=== PATIENT | male | born 1975 | race Hispanic/Latino ===

== ENCOUNTER 2019-12-10 05:59 | Emergency (ER) | payer BC, OTHER | END 2019-12-10 06:55 | disposition home or self-care (01) | LOC: EDH 05:59 | DX: J10.1 Influenza due to other identified influenza virus with other respiratory manifestations (principal); E11.9 Type 2 diabetes mellitus without complications | CPT/HCPCS: 99281 ==

== ENCOUNTER 2020-02-23 07:51 | Emergency (ER) | payer SELFPAY | END 2020-02-23 09:03 | disposition home or self-care (01) | LOC: EDH 07:51 | DX: F41.1 Generalized anxiety disorder (principal); R06.00 Dyspnea, unspecified; E11.9 Type 2 diabetes mellitus without complications | CPT/HCPCS: 71045; 93005 ==

== ENCOUNTER 2021-06-18 17:32 | Emergency (ER) | payer BC, OTHER ==
[~2021-06-18] VITALS: Ht 165.1 cm; Wt 89.4 kg
[2021-06-18 17:33] VITALS: BP 147/94
[2021-06-18 18:17] LABS: BASOPHILS % (AUTO) 0.5 % (0.0-5.0); EOSINOPHILS % (AUTO) 2.2 % (0.0-8.0); HEMATOCRIT 45.5 % (42-54); LYMPHOCYTES % (AUTO) 21.3 % (21.0-51.0); MEAN CORPUSCULAR HEMOGLOBIN 28.8 pg (27.0-33.0); MEAN CORPUSCULAR HGB CONC 34.9 g/dL (32.0-36.0); MEAN CORPUSCULAR VOLUME 82.3 fL (79-99); MONOCYTES % (AUTO) 6.7 % (3.0-13.0); NEUTROPHILS % (AUTO) 68.9 % (40.0-77.0); PLATELET COUNT (AUTO) 182 K/uL (130-400); RED BLOOD CELL COUNT(AUTO) 5.53 MIL/uL (4.50-6.20); WHITE BLOOD COUNT (AUTO) 5.5 K/uL (4.8-10.8)
[2021-06-18 18:20] LABS: APPEARANCE,URINE Clear (CLEAR); BILIRUBIN,URINE Negative (NEGATIVE); COLOR,URINE Yellow (YELLOW); GLUCOSE, URINE (UA) >=1000 mg/dL (NEGATIVE); KETONES,URINE Negative (NEGATIVE); LEUKOCYTE ESTERASE ,URINE Negative (NEGATIVE); NITRATE,URINE Negative (NEGATIVE); OCCULT BLOOD,URINE Negative (NEGATIVE); PH,URINE 6.5 (5.0-8.0); PROTEIN,URINE Negative (NEGATIVE)
[2021-06-18 18:30] LABS: BACTERIA,URINE Rare /HPF (None Seen); RBC,URINE 0-1 /HPF (0-1); SQUAMOUS EPITHELIAL CELL,UR Rare /HPF (0-2); WBC,URINE 0-1 /HPF (0-1)
[2021-06-18] MEDS ORDERED: 0.9%NACL 1000ML 1,000 ML IV ONE ×2 (18:30)
[2021-06-18] MEDS ORDERED: INSULIN HUMULIN R 100 UNIT/ML 3ML IV ONE (18:30)
[2021-06-18 18:34] LABS: BILIRUBIN,TOTAL 0.5 mg/dL (0.2-1.0); CREATININE 0.9 mg/dL (0.5-1.5); POTASSIUM 3.7 mmol/L (3.5-5.1); TOTAL PROTEIN, SERUM 7.3 g/dL (6.0-8.3)
[2021-06-18 18:36] LABS: ALBUMIN 3.7 g/dL (3.5-5.0)
[2021-06-18 18:37] VITALS: BP 140/80
[2021-06-18 19:35] VITALS: BP 137/85
== END 2021-06-18 20:19 | disposition home or self-care (01) ==
LOC: EDH 17:32
DX: E11.65 Type 2 diabetes mellitus with hyperglycemia (principal); I10 Essential (primary) hypertension; Z91.14 Patient's other noncompliance with medication regimen; E78.00 Pure hypercholesterolemia, unspecified; Z79.4 Long term (current) use of insulin
CPT/HCPCS: 36415; 71045; 80053; 81001; 82948 ×2; 84484; 85025; 93005; 96361; 96374; 99285; J1815; J7030

== ENCOUNTER 2021-09-15 20:52 | Emergency (ER) | payer BC ==
[~2021-09-15] VITALS: Ht 162.6 cm; Wt 89.4 kg
[2021-09-15] MEDS ORDERED: ACETAMINOPHEN 500 MG TABLET PO ONE (21:30)
[2021-09-15] MEDS ORDERED: KETOROLAC 60 MG VIAL (30MG/ML) IM ONE (21:30)
[2021-09-15] MEDS ORDERED: NAPR-1180 PO (21:44)
[2021-09-15 21:58] VITALS: BP 139/85
== END 2021-09-15 21:58 | disposition home or self-care (01) ==
LOC: EDH 20:52
DX: S50.02XA Contusion of left elbow, initial encounter (principal); F41.9 Anxiety disorder, unspecified; I10 Essential (primary) hypertension; E11.9 Type 2 diabetes mellitus without complications; Z79.1 Long term (current) use of non-steroidal anti-inflammatories (NSAID); W18.39XA Other fall on same level, initial encounter; Y93.89 Activity, other specified; Y92.89 Other specified places as the place of occurrence of the external cause; Y99.8 Other external cause status
CPT/HCPCS: 73080; 96372; 99284; J1885

== ENCOUNTER 2021-10-09 22:40 | Emergency (ER) | payer BC, OTHER ==
[~2021-10-09] VITALS: Ht 162.6 cm; Wt 90.3 kg
[~2021-10-09 22:40] MED LIST: NAPR-1180 PO
[2021-10-09] MEDS ORDERED: KETOROLAC 30MG VIAL (30MG/ML) ONE (23:14)
[2021-10-09] MEDS ORDERED: ASPIRIN 325MG TAB ONE (23:14)
[2021-10-09] MEDS ORDERED: NITROGLYCERIN 1GM OINT 1 INCH/1GM TD ONE ×2 (23:15→23:30)
[2021-10-09 23:19] LABS: BASOPHILS % (AUTO) 0.6 % (0.0-5.0); EOSINOPHILS % (AUTO) 2.8 % (0.0-8.0); HEMATOCRIT 44.6 % (42-54); LYMPHOCYTES % (AUTO) 27.3 % (21.0-51.0); MEAN CORPUSCULAR HEMOGLOBIN 29.5 pg (27.0-33.0); MEAN CORPUSCULAR HGB CONC 35.7 g/dL (32.0-36.0); MEAN CORPUSCULAR VOLUME 82.7 fL (79-99); MONOCYTES % (AUTO) 7.4 % (3.0-13.0); NEUTROPHILS % (AUTO) 61.6 % (40.0-77.0); PLATELET COUNT (AUTO) 169 K/uL (130-400); RED BLOOD CELL COUNT(AUTO) 5.39 MIL/uL (4.50-6.20); RED CELL DISTRIBUTION WIDTH 11.9 % (11.0-15.5); WHITE BLOOD COUNT (AUTO) 7.1 K/uL (4.8-10.8)
[2021-10-09] MEDS ORDERED: ASPIRIN 325MG TAB PO ONE (23:30)
[2021-10-09] MEDS ORDERED: KETOROLAC 30MG VIAL (30MG/ML) IV ONE (23:30)
[2021-10-09 23:35] LABS: CREATININE 0.9 mg/dL (0.5-1.5); POTASSIUM 3.6 mmol/L (3.5-5.1)
[2021-10-09 23:36] LABS: INR 0.95 (0.85-1.15); PROTHROMBIN TIME 10.4 SEC (9.6-11.6)
[2021-10-09 23:37] LABS: PARTIAL THROMBOPLASTIN TIME 25.6 SEC (26.3-35.5)
[2021-10-09 23:39] LABS: ALBUMIN 3.7 g/dL (3.5-5.0); BILIRUBIN,TOTAL 0.4 mg/dL (0.2-1.0); TOTAL PROTEIN, SERUM 6.8 g/dL (6.0-8.3)
[2021-10-10] MEDS ORDERED: ORPHENADRINE CITRATE 30 MG/ML ML IV ONE (00:30)
[2021-10-10] MEDS ORDERED: META800T72 PO (03:04)
[2021-10-10 03:10] VITALS: BP 115/66
== END 2021-10-10 03:19 | disposition home or self-care (01) ==
LOC: EDH 22:40
DX: R07.89 Other chest pain (principal); R06.02 Shortness of breath; E11.9 Type 2 diabetes mellitus without complications; I10 Essential (primary) hypertension; Z79.1 Long term (current) use of non-steroidal anti-inflammatories (NSAID); Z79.82 Long term (current) use of aspirin
CPT/HCPCS: 36415; 71045; 80053; 84484 ×2; 85025; 85610; 85730; 93005 ×2; 96374; 96375; 99285; J1885; J2360

== ENCOUNTER 2022-08-27 15:40 | Emergency (ER) | payer BC, OTHER ==
[~2022-08-27] VITALS: Ht 162.6 cm; Wt 91.6 kg
[~2022-08-27 15:40] MED LIST changes: +META800T72 PO
[2022-08-27 15:44] VITALS: BP 140/90
== END 2022-08-27 15:57 | disposition home or self-care (01) ==
LOC: EDH 15:40
DX: G43.909 Migraine, unspecified, not intractable, without status migrainosus (principal); E11.9 Type 2 diabetes mellitus without complications; Z79.899 Other long term (current) drug therapy

== ENCOUNTER 2024-01-05 17:19 | Emergency (ER) | payer OTHER ==
[~2024-01-05] VITALS: Ht 162.6 cm; Wt 90.7 kg
[2024-01-05] MEDS: GABAPENTIN 300 MG CAPSULE PO SCH (20:25)
[2024-01-05] MEDS: DEXAMETHASONE SOD PHOSPHATE 4 MG/ML 1ML VIAL IM ONE (20:29)
[2024-01-05] MEDS: DEXAMETHASONE SOD PHOSPHATE 10MG/ML 1ML VIAL ONE (20:30)
[2024-01-05] MEDS ORDERED: GABA300S3 PO (20:39)
[2024-01-05] MEDS ORDERED: PRED50TA2 PO (20:39)
[2024-01-05 21:25] VITALS: BP 160/90; PULSE 81; RESP 17; O2SAT 98
== END 2024-01-05 21:29 | disposition home or self-care (01) ==
LOC: EDH 17:19
DX: M54.42 Lumbago with sciatica, left side (principal); E11.9 Type 2 diabetes mellitus without complications
CPT/HCPCS: 99283; 72100; 96372; J1100

== ENCOUNTER 2024-02-15 16:32 | Emergency (ER) | payer OTHER ==
[~2024-02-15] VITALS: Ht 162.6 cm; Wt 89.8 kg
[~2024-02-15 16:32] MED LIST changes: +GABA300S3 PO; +PRED50TA2 PO
[2024-02-15 18:00] LABS: BASOPHILS # (AUTO) 0.03 K/uL (0.00-0.20); BASOPHILS % (AUTO) 0.5 % (0.0-5.0); EOSINOPHILS # (AUTO) 0.26 K/uL (0.00-0.70); EOSINOPHILS % (AUTO) 4.3 % (0.0-8.0); HEMATOCRIT 42.6 % (42-54); IMMATURE GRANULOCYTE ABSOLUTE 0.03 K/uL (0-1); LYMPHOCYTES # (AUTO) 1.7 K/uL (1.0-4.8); LYMPHOCYTES % (AUTO) 28.3 % (21.0-51.0); MEAN CORPUSCULAR HEMOGLOBIN 29.1 pg (27.0-33.0); MEAN CORPUSCULAR HGB CONC 36.4 g/dL (32.0-36.0); MEAN CORPUSCULAR VOLUME 79.9 fL (79-99); MONOCYTES # (AUTO) 0.5 K/uL (0.1-1.0); MONOCYTES % (AUTO) 7.7 % (3.0-13.0); NEUTROPHILS # (AUTO) 3.5 K/uL (1.8-7.7); NEUTROPHILS % (AUTO) 58.7 % (40.0-77.0); PLATELET COUNT (AUTO) 193 K/uL (130-400); RED BLOOD CELL COUNT(AUTO) 5.33 MIL/uL (4.50-6.20); RED CELL DISTRIBUTION WIDTH 12.1 % (11.0-15.5)
[2024-02-15 18:16] LABS: CREATININE 0.8 mg/dL (0.5-1.3); POTASSIUM 3.6 mmol/L (3.5-5.1)
[2024-02-15 18:20] LABS: ALBUMIN 3.3 g/dL (3.5-5.0); BILIRUBIN,TOTAL 0.4 mg/dL (0.2-1.0); TOTAL PROTEIN, SERUM 6.5 g/dL (6.0-8.3)
[2024-02-15] MEDS ORDERED: IBUPROFEN 800 MG TAB PO ONE (18:30)
[2024-02-15] MEDS ORDERED: IBUP-2077 PO (18:31)
[2024-02-15 19:23] VITALS: BP 134/74; PULSE 81; RESP 18; O2SAT 98
== END 2024-02-15 19:28 | disposition home or self-care (01) ==
LOC: EDH 16:32
DX: R10.9 Unspecified abdominal pain (principal); E11.65 Type 2 diabetes mellitus with hyperglycemia; I10 Essential (primary) hypertension; Z79.52 Long term (current) use of systemic steroids
CPT/HCPCS: 36415; 74176; 80053; 85025

== ENCOUNTER 2025-03-14 21:49 | Emergency (ER) | payer OTHER ==
[~2025-03-14] VITALS: Ht 165.1 cm; Wt 91.2 kg
[~2025-03-14 21:49] MED LIST changes: +IBUP-2077 PO
[2025-03-14 21:50] VITALS: BP 169/101; PULSE 91; RESP 20; TEMP 97.4
== END 2025-03-14 22:59 | disposition left against medical advice (07) ==
LOC: EDH 21:49
DX: R51.9 Headache, unspecified (principal); Z53.21 Procedure and treatment not carried out due to patient leaving prior to being seen by health care provider